=== PATIENT | male | born 1955 | race Caucasian/White ===

== ENCOUNTER 2016-11-27 21:18 | Emergency (ER) | payer BC ==
[~2016-11-27] VITALS: Ht 177.8 cm; Wt 94.5 kg
[~2016-11-27 21:18] MED LIST: KLONOPIN 1MG1 MG PO; MVI; ULTRAM 50MG TAB50 MG PO
[2016-11-27 21:19] VITALS: TEMP 98.2
[2016-11-27 21:38] LABS: BASO % 0.3 % (0.0-2.0); EOS # 0.2 (0.0-0.7); EOS % 2.3 % (0-4.0); GRAN # 4.6 (1.4-6.5); GRAN % 67.3 % (42.2-75.2); HEMATOCRIT 42.5 % (42.0-52.0); HEMOGLOBIN 14.5 g/dl (13.5-18.0); LYMPH # 1.5 (1.2-3.4); LYMPH % 21.8 % (20.0-51.0); MEAN CELL VOLUME 86 fl (80.0-100.0); MEAN CORPUSCULAR HEMOGLOBIN 30 pg (27.0-31.0); MEAN CORPUSCULAR HGB CONC 34 g/dl (33.0-37.0); MEAN PLATELET VOLUME 9.7 fl (7.4-10.4); MONO # 0.5 (0.1-0.6); MONO % 7.4 % (1.7-9.3); PLATELET COUNT 212 K/mm3 (130-400); RED BLOOD COUNT 4.92 M/mm3 (4.20-5.60); REDCELL DISTRIBUTION WIDTH-CV 12.9 % (11.5-14.5); WHITE BLOOD COUNT 6.9 K/mm3 (4.8-10.8)
[2016-11-27 21:48] LABS: ADJUSTED CALCIUM 8.8 mg/dL (8.4-10.2); ALBUMIN 4.1 gm/dL (3.5-5.0); BILIRUBIN,TOTAL 0.8 mg/dL (0.0-1.0); CALCIUM 8.9 mg/dL (8.4-10.2); CREATININE, serum 0.89 mg/dL (0.66-1.25); TOTAL PROTEIN 6.8 gm/dL (6.4-8.2)
[2016-11-27] MEDS ORDERED: ULTRAM 50MG TAB50 MG PO (22:43)
[2016-11-27] MEDS ORDERED: PERCOCET 325 MG1 TA2 PO (22:43)
[2016-11-27 22:52] VITALS: BP 125/87; PULSE 82
== END 2016-11-27 23:30 | disposition home or self-care (01) ==
LOC: COL.ER 21:18
PROVIDERS: Emergency Medicine
DX: S09.90XA Unspecified injury of head, initial encounter (principal); S22.089A Unspecified fracture of T11-T12 vertebra, initial encounter for closed fracture; R10.84 Generalized abdominal pain; M54.2 Cervicalgia; W17.89XA Other fall from one level to another, initial encounter; Y92.009 Unspecified place in unspecified non-institutional (private) residence as the place of occurrence of the external cause; F41.9 Anxiety disorder, unspecified
CPT/HCPCS: J1170; J1885; Q9967

== ENCOUNTER 2016-12-02 08:42 | Outpatient (CLI) | payer BC ==
[~2016-12-02] VITALS: Ht 177.8 cm; Wt 94.5 kg
[~2016-12-02 08:42] MED LIST changes: +PERCOCET 325 MG1 TA2 PO
[2016-12-02] MEDS ORDERED: ADVIL MIGRAINE200 MG PO (09:04)
[2016-12-02 09:05] VITALS: BP 136/87; PULSE 82; TEMP 98.2
[2016-12-02] MEDS ORDERED: ULTRAM 50MG TAB50 MG PO (09:24)
[2016-12-02] MEDS ORDERED: PERCOCET 325 MG1 TA2 PO (09:24)
[2016-12-02 09:46] LABS: HEMATOCRIT 43.1 % (42.0-52.0); HEMOGLOBIN 14.7 g/dl (13.5-18.0); MEAN CELL VOLUME 86 fl (80.0-100.0); MEAN CORPUSCULAR HEMOGLOBIN 29 pg (27.0-31.0); MEAN CORPUSCULAR HGB CONC 34 g/dl (33.0-37.0); MEAN PLATELET VOLUME 9.1 fl (7.4-10.4); PLATELET COUNT 204 K/mm3 (130-400); REDCELL DISTRIBUTION WIDTH-CV 12.8 % (11.5-14.5); WHITE BLOOD COUNT 5.7 K/mm3 (4.8-10.8)
[2016-12-02 10:54] VITALS: BP 132/91; PULSE 76
[2016-12-02 12:15] VITALS: BP 120/87; PULSE 71
[2016-12-02 12:30] VITALS: BP 128/96; PULSE 72
[2016-12-02 13:00] VITALS: BP 130/69; PULSE 70
== END 2016-12-02 13:35 | disposition home or self-care (01) ==
LOC: COL.CAR 08:42
PROVIDERS: Radiology Diagnostic Radiology
DX: S22.081A Stable burst fracture of T11-T12 vertebra, initial encounter for closed fracture (principal); E03.9 Hypothyroidism, unspecified; E66.9 Obesity, unspecified; Z87.891 Personal history of nicotine dependence; W19.XXXA Unspecified fall, initial encounter
CPT/HCPCS: C1713; J2250; J3010; J7120

== ENCOUNTER → 2017-08-23 | Outpatient (REF) ==
[~2017-08-23] MED LIST changes: +ADVIL MIGRAINE200 MG PO
[2017-08-23 19:12] LABS: PSA-TOTAL 1.72 ng/mL (0-4)
[2017-08-23 19:29] LABS: THYROID STIMULATING HORMONE 3.41 uIU/mL (0.465-4.680)
== END ==
LOC: ZLAB.WCH 18:24
PROVIDERS: Internal Medicine
DX: Z01.89 Encounter for other specified special examinations (principal)
CPT/HCPCS: G0103

== ENCOUNTER → 2017-12-03 | Outpatient (REF) | LOC: ZLAB.WCH 17:51 | DX: Z01.89 Encounter for other specified special examinations (principal) ==

== ENCOUNTER → 2017-12-15 | Outpatient (REF) | LOC: ZLAB.WCH 08:34 | DX: Z01.89 Encounter for other specified special examinations (principal) ==